=== PATIENT | female | born 1965 | race African-American/Black ===

== ENCOUNTER → 2020-04-04 | Outpatient (CLI) | payer BC ==
--- NOTE | 2020-04-04 11:00 | RADIOLOGY REPORT (SQ) ---
EXAM DESCRIPTION: CHEST 2 VIEWS IMAGES COMPLETED DATE/TIME: 04/04/2020 10:52 am REASON FOR STUDY: (J40)BRONCHITIS, NOT SPECIFIED ACUTE OR CHRONIC COMPARISON: None. EXAM PARAMETERS: NUMBER OF VIEWS: two views TECHNIQUE: Digital Frontal and Lateral radiographic views of the chest acquired. RADIATION DOSE: NA LIMITATIONS: none FINDINGS: LUNGS AND PLEURA: Multifocal patchy airspace opacities are seen bilaterally. No pleural e ffusion. No pneumothorax. MEDIASTINUM AND HILAR STRUCTURES: No masses or contour abnormalities. HEART AND VASCULAR STRUCTURES: Heart normal size. No evidence for failure. BONES: No acute findings. HARDWARE: None in the chest. OTHER: No other significant finding. IMPRESSION: Constellation of findings consistent with multi lobar pneumonia. Given distribution, re commend consideration for atypical etiologies to include viral/ COVID in treatment planning. TECHNICAL DOCUMENTATION: JOB ID: [id number] 2010 [employer]- All Rights Reserved Reading location - IP/workstation name: [email or web address]
== END ==
LOC: RAD 10:34
PROVIDERS: ATTEND Physician Assistant
DX: J40 Bronchitis, not specified as acute or chronic (principal)
CPT/HCPCS: 71046

== ENCOUNTER 2020-04-16 09:18 | Emergency (ER) | payer BC ==
--- NOTE | 2020-04-16 11:00 | RADIOLOGY REPORT (SQ) ---
EXAM DESCRIPTION: CHEST SINGLE VIEW<Procedure Description>CHEST SINGLE VIEW IMAGES COMPLETED DATE/TIME: 04/16/2020 10:46 am<Completed Time>04/16/2020 10:46 am REASON FOR STUDY: cough/fever/covid19 positive<Reason For Exam>cough/fever/covid19 positive <ADM DX> COMPARISON: 04/04/2020 NUMBER OF VIEWS: One. TECHNIQUE: Single frontal radiographic view of the chest acquired. RADIATION DOSE: <RADIATION DOSE> LIMITATIONS: None. FINDINGS: LUNGS AND PLEURA: No pneumothorax. Small amount of residual interstitial opacity -basila r subsegmental atelectasis. No acute consolidation or pleural effusion. MEDIASTINUM AND HILAR STRUCTURES: Stable. HEART AND VASCULAR STRUCTURES: Stable. BONES: No acute findings. HARDWARE: None in the chest. OTHER: No other significant findings. IMPRESSION: Small amount of residual interstitial opacity -basilar subsegmental atelectasis. No acut e consolidation or pleural effusion. TECHNICAL DOCUMENTATION: JOB ID: [id number]<Job ID>[id number] 2010 [employer]- All Rights Reserved Reading location - IP/workstation name: [facility]
--- NOTE | 2020-04-16 11:37 | ER Document Report ---
Entered by SHERI STREETER SCRIBE 04/16/20 1010 Acting as scribe for:AMMY WYATT MD ED General - General Chief Complaint: Sore Throat Stated Complaint: SHORTNESS OF BREATH/FEVER/SORE THROAT/EAR PAIN Mode of Arrival: Ambulatory Information source: Patient Notes: This 54 year old female patient presents to the ED today for evaluation after spiking a 101.4 fever last night. Patient notes taking Advil at 0200. Patient states that she tested positive for COVID on 03/29 and was diagnosed with pneumonia on 04/04. She was started on a course of Augmentin, Doxycycline, Prednisone, and a cough syrup which she has since finished. She still reports a productive cough with clear sputum, body aches, fatigue, and sore throat. She mentions that she just came back from her sister's in [place] who passed due to COVID. - Related Data Allergies/Adverse Reactions: No Known Allergies Allergy (Unverified 04/16/20 09:45) Home Medications: denies Past Medical History - General Information source: Patient - Social History Smoking Status: Former Smoker Cigarette use (# per day): No Chew tobacco use (# tins/day): No Smoking Education Provided: No Frequency of alcohol use: Social Drug Abuse: None Family History: Reviewed & Not Pertinent Patient has homicidal ideation: No Pulmonary Medical History: Reports: Hx Pneumonia Review of Systems - Review of Systems Constitutional: See HPI, Fever, Other - Fatigue, Recent illness EENT: See HPI, Throat pain Cardiovascular: No symptoms reported Respiratory: See HPI, Cough, Sputum Gastrointestinal: No symptoms reported Genitourinary: No symptoms reported Female Genitourinary: No symptoms reported Musculoskeletal: See HPI, Muscle pain Skin: No symptoms reported Hematologic/Lymphatic: No symptoms reported Neurological/Psychological: No symptoms reported -: Yes All other systems reviewed and negative Physical Exam - Vital signs Vitals: Temp Pulse Resp BP Pulse Ox 98.1 F 91 20 143/83 H 98 04/16/20 09:29 04/16/20 09:29 04/16/20 09:29 04/16/20 09:29 04/16/20 09:29 - General General appearance: Appears well, Alert In distress: None - HEENT Head: Normocephalic, Atraumatic Eyes: Normal Extraocular movements intact: Yes Pupils: PERRL Pharynx: Erythema, Tonsillar hypertrophy - Mild bilateral tonsillar hypertrophy. No: Exudate Neck: Normal, Supple. No: Lymphadenopathy - Respiratory Respiratory status: No respiratory distress Chest status: Nontender Breath sounds: Decreased air movement - Diminished breath sounds in the bases Chest palpation: Normal - Cardiovascular Rhythm: Regular Heart sounds: Normal auscultation Murmur: No - Abdominal Inspection: Normal Distension: No distension Bowel sounds: Normal Tenderness: Nontender - Abdomen soft Organomegaly: No organomegaly - Back Back: Normal, Nontender - Extremities General upper extremity: Normal inspection General lower extremity: Normal inspection. No: Edema - Neurological Neuro grossly intact: Yes Orientation: AAOx4 Shawn Coma Scale Eye Opening: Spontaneous [place] Coma Scale Verbal: Oriented [place] Coma Scale Motor: Obeys Commands [place] Coma Scale Total: 15 - Psychological Associated symptoms: Normal affect, Normal mood - Skin Skin Temperature: Warm Skin Moisture: Dry Skin Color: Normal Course - Re-evaluation Re-evalutation: 04/16/20 11:34 Patient resting comfortably not showing signs of distress. - Vital Signs Vital signs: Temp Pulse Resp BP Pulse Ox 98.1 F 91 20 143/83 H 98 04/16/20 09:29 04/16/20 09:29 04/16/20 09:29 04/16/20 09:29 04/16/20 09:29 04/16/20 11:34 Vital signs stable. Afebrile pulse ox 98% no respiratory distress - Laboratory Results Laboratory Results Interpreted: Labs- Entire Visit 04/16/20 10:57 Group A Strep Rapid NEGATIVE 04/16/20 11:35 Strep throat negative on rapid testing. Critical Laboratory Results Reviewed: No Critical Results - Radiology Results Radiology Results Interpreted: 04/16/20 11:24 Chest X-Ray 04/16/20 10:26 IMPRESSION: Small amount of residual interstitial opacity -basilar subsegmental atelectasis. No acute consolidation or pleural effusion. 04/16/20 11:35 Chest x-ray shows residual interstitial opacity in the base no acute consolidation no pleural effusion . Critical Radiology Results Reviewed: No Critical Results Discharge - Discharge Clinical Impression: Bronchitis, Cough, COVID-19 Condition: Stable Disposition: HOME, SELF-CARE Instructions: Sore Throat ([facility]) I personally performed the services described in the documentation, reviewed and edited the documentation which was dictated to the scribe in my presence, and it accurately records my words and actions.
[2020-04-16 11:56] VITALS: BP 124/70
--- OUTSIDE RECORDS SUMMARY | 2020-04-18 10:42 | XMS REPORT ---
:1965 Author [facility] [place] [address] [place] [address] Care Team Providers Name Role Phone Unavailable Unavailable Unavailable Allergies, Adverse Reactions, Alerts This patient has no known allergies or adverse reactions. Medications This patient has no known medications. Problems This patient has no known problems. Procedures This patient has no known procedures. Results Test Description Test Time Test Comments Text Results Atomic Results Result Comments SARS-CoV-2 RNA Resp Ql CHRISTOPHE+probe 2020-03-28 00:00:00 Test Item Value Reference Range Comments SARS-CoV-2 RNA Resp Ql CHRISTOPHE+probe Detected [place] [facility] Case ID: (test code = 77274-9) [id number] Social History This patient has no known social history. Vital Signs This patient has no known vital signs.
== END 2020-04-16 11:56 | disposition home or self-care (01) ==
LOC: ER 09:18
DX: U07.1 COVID-19 (principal); J40 Bronchitis, not specified as acute or chronic; R05 Cough; J02.9 Acute pharyngitis, unspecified; R06.02 Shortness of breath; R50.9 Fever, unspecified; M79.10 Myalgia, unspecified site; R53.83 Other fatigue; Z87.891 Personal history of nicotine dependence
CPT/HCPCS: 71045; 87070; 87880; 99284